=== PATIENT | male | born 1975 | race Caucasian/White ===

== ENCOUNTER 2021-07-14 17:17 | Emergency (ER) | payer OTHER ==
[~2021-07-14 17:17] MED LIST: KEFLEX250 MG PO; MEDROL 4MG DOSEP4 MG PO; NAPROXEN500 MG PO; TESSALON PERLE100 MG PO; VENTOLIN HFA IN18 GM INH
[2021-07-14] MEDS ORDERED: SINGULAIR10 MG PO (21:50)
[2021-07-14] MEDS ORDERED: MEDROL 4MG DOSEP4 MG PO (21:50)
== END 2021-07-14 22:31 | disposition home or self-care (01) ==
LOC: FER 17:17
DX: J30.2 Other seasonal allergic rhinitis (principal); I10 Essential (primary) hypertension; Z88.5 Allergy status to narcotic agent; Z88.8 Allergy status to other drugs, medicaments and biological substances
CPT/HCPCS: 71046; J1100